=== PATIENT | male | born 1960 | race African-American/Black ===

== ENCOUNTER 2019-07-21 23:11 | Emergency (ER) | payer OTHER ==
--- NOTE | 2019-07-21 23:16 | PDOC ---
History of Present Illness - General Chief Complaint: Blurry Vision Stated Complaint: VISUAL CHANGE/LIGHT SENSITIVITY Time Seen by Provider: 07/21/19 23:15 - History of Present Illness Initial Comments: 07/22/19 00:21 This 58-year-old man with a history of HTN and remote history of migraine headaches presents with episode of visual changes, partial tongue numbness followed by right frontal headache and nausea. 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 He noted blurry vision in both eyes at this time, slight disorientation and numbness at the tip of his tongue. He also had some mild numbness at tips of his fingers. Very soon after this, he developed right frontal headache and mild nausea. Visual changes/numbness/ disorientation resolved spontaneously after 10-15 minutes. The patient remembered that in the previous few times he had migraine headache, it was preceded by same constellation of symptoms (visual changes/numbness). He then took a dose of naproxen prescribed for his sciatica with improvement in the headache pain. Patient had his usual dose of antihypertensive medication(Losartan) at 9 PM as usual. He states that his blood pressure is well-controlled on Losartan running in the 120/80 range. He has not had any lapse in taking his medications. Patient denies difficulty speaking/word recall, facial weakness, extremity weakness, difficulty in ambulation or balance problems No recent trauma. No recent fever/chills/neck pain or stiffness. Past History - Past Medical History Allergies/Adverse Reactions: Allergies Allergy/AdvReac Type Severity Reaction Status Date / Time No Known Allergies Allergy Unverified 07/21/19 23:18 Home Medications: Ambulatory Orders Losartan Potassium 15 mg PO DAILY 07/21/19 Review of Systems - Review of Systems Able to Perform ROS?: Yes Comments:: 12 point review of systems is negative except for what is noted in the history of present illness *Physical Exam - Physical Exam Comments: GENERAL: Adult male, alert and oriented 3, speaking in a clear voice and with fluent speech, in no acute distress HEAD: Normal with no signs of trauma. EYES: PERRLA, EOMI, sclera anicteric, conjunctiva clear. Posterior chamber examined through nondilated pupils: No evidence of retinopathy (limited view) ENT: Ears normal, nares patent, oropharynx clear without exudates. Moist mucous membranes. NECK: Normal range of motion, supple without lymphadenopathy, JVD, or masses. LUNGS: Breath sounds equal, clear to auscultation bilaterally. No wheezes, and no crackles. HEART:Regular rate and rhythm, normal S1 and S2 without murmur, rub or gallop. ABDOMEN:.normal bowel sounds No guarding,tenderness or rebound.No masses No distention. EXTREMITIES: Normal range of motion, no edema. No clubbing or cyanosis. No erythema, or tenderness. NEUROLOGICAL: Cranial nerves II through XII grossly intact. Normal speech. No pronator drift. Motor 5/5 throughout; no sensory deficit Gait normal SKIN: Warm, Dry, normal turgor, no rash Twelve-lead electrocardiogram performed and interpreted by me: Sinus bradycardia 52 bpm; there is evidence of left ventricular hypertrophy but no acute ST or T-wave abnormalities. No acute cardiac arrhythmia. Waveforms axis and intervals are all normal ED Treatment Course - LABORATORY CBC & Chemistry Diagram: 07/22/19 00:00 07/22/19 00:00 Progress Note - Progress Note Progress Note: This 58-year-old man with a history of hypertension presents with episode of visual changes, tongue numbness that resolved after 10-15 minutes but accompanied by right sided headache. This is similar pattern to patient's prior migraine episodes; he did, however note markedly elevated blood pressure readings at this time. Exam as noted. Although symptom complex is highly suggestive of migraine aura (and no further visual changes/sensory changes are present) because of the elevation of his blood pressure, which apparently is usually very well controlled, noncontrast head CT would was performed to evaluate for intracerebral bleed, acute infarct or other acute intracranial abnormality. Also, CBC, chemistry profiles, INR, troponin evaluated: No significant abnormality on laboratory evaluation Noncontrast head CT performed: Preliminary interpretation by Imaging environmental protection specialist-no evidence of intracranial bleed/mass/infarct. No fracture seen. Results discussed with the patient. He now feels more comfortable with only minimal amount of headache. He states that he normally takes only "Excedrin migraine" for his headaches and that this medication is very effective. He does have this medication at home and prefers to take it if needed when he gets home. Patient will be discharged with instructions to follow-up with his doctor () within the next few days. No work tomorrow (he is not scheduled to work after that until Friday, 07/26). He should call his doctor tomorrow to arrange follow-up. If he has a persistent severe pain/headache he should return to the ER. 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 if he has any visual changes that persist (patient's last ophthalmologic exam was only 3 weeks ago it was unchanged from previous) *DC/Admit/Observation/Transfer Diagnosis at time of Disposition: Migraine with aura Qualifiers: Status migrainosus presence: without status migrainosus Intractability: not intractable Qualified Code(s): G43.109 - Migraine with aura, not intractable, without status migrainosus - Discharge Dispostion Disposition: HOME Condition at time of disposition: Improved - Referrals - Patient Instructions Printed Discharge Instructions: Migraine -- Adult Additional Instructions: rest, no work tomorrow Excedrin Migraine as needed for headache as previously Continue losartan as previously prescribed Call your general physician tomorrow to arrange follow-up within the next 48 hours followup with your ophthamologist if you note changes in your vision Return to ER if you have severe, persistent headache - Post Discharge Activity Forms/Work/School Notes: Back to Work
[2019-07-21 23:18] VITALS: PULSE 61; TEMP 97.7; BMI 25.8
[2019-07-22] MEDS ORDERED: IBUPROFEN 600 MG TABLET (FP) PO ONE (00:21)
[2019-07-22 01:09] LABS: BASO % 0.2 % (0-2.0); EOS % 4.4 % (0-4.5); HEMATOCRIT 42.4 % (35.4-49); HEMOGLOBIN 13.7 GM/dL (11.7-16.9); LYMPH % 31.3 % (8-40); MCH 26.7 pg (25.7-33.7); MCHC 32.4 g/dl (32.0-35.9); MEAN CELL VOLUME 82.5 fl (80-96); MEAN PLT VOLUME 8.7 fl (7.5-11.1); MONO % 7.2 % (3.8-10.2); NEUT % 56.9 % (42.8-82.8); PLATELET COUNT 233 K/MM3 (134-434); RBC 5.14 M/mm3 (4.00-5.60); RDW 13.5 % (11.9-15.9); WHITE BLOOD COUNT 5.9 K/mm3 (4.0-10.0)
[2019-07-22 01:21] LABS: INR 1.01 (0.83-1.09); PROTHROMBIN TIME (PATIENT) 11.9 SEC (9.7-13.0)
[2019-07-22 01:24] LABS: ALBUMIN 4.3 g/dl (3.4-5.0); ALK PHOS 145 U/L (45-117); ANION GAP 5 MMOL/L (8-16); BILIRUBIN,TOTAL 0.5 mg/dL (0.2-1); BLOOD UREA NITROGEN 15.8 mg/dL (7-18); CALCIUM 9.5 mg/dL (8.5-10.1); CHLORIDE 101 mmol/L (98-107); CO2 33 mmol/L (21-32); CREATININE 1.3 mg/dL (0.55-1.3); GLUCOSE,RANDOM 111 mg/dL (74-106); POTASSIUM 4.1 mmol/L (3.5-5.1); SGOT/AST 30 U/L (15-37); SGPT/ALT 28 U/L (13-61); SODIUM 139 mmol/L (136-145); TOT PROT 7.2 g/dl (6.4-8.2)
[2019-07-22 02:34] VITALS: BP 134/100
--- NOTE | 2019-07-22 14:09 | EKG ---
Test Reason : Blood Pressure : / mmHG Vent. Rate : 052 BPM Atrial Rate : 052 BPM P-R Int : 172 ms QRS Dur : 094 ms QT Int : 430 ms P-R-T Axes : 000 014 002 degrees QTc Int : 399 ms SINUS BRADYCARDIA VOLTAGE CRITERIA FOR LEFT VENTRICULAR HYPERTROPHY ABNORMAL ECG NO PREVIOUS ECGS AVAILABLE Confirmed by YOVANI VAZQUEZ MD ([id number]) on 07/22/2019 2:09:33 PM Referred By: MD SIN Confirmed By:YOVANI VAZQUEZ MD
== END 2019-07-22 02:38 | disposition home or self-care (01) ==
LOC: FER 23:11
DX: G43.109 Migraine with aura, not intractable, without status migrainosus (principal); I10 Essential (primary) hypertension
CPT/HCPCS: 36415; 70450-TC; 80053; 82550; 82553; 84484; 85025; 85610; 93005; 99284-25